=== PATIENT | male | born 1980 | race American Indian/Alaskan Native ===

== ENCOUNTER 2021-02-06 18:37 | Inpatient (IN) | payer SELFPAY ==
--- NOTE | 2021-02-06 19:22 | XRay Report ---
XR ankle 3+V RT INDICATION: DEFORMITY. COMPARISON: No relevant prior imaging study available. FINDINGS: There is a mildly comminuted oblique spiral-type fracture through the distal tibial diaphysis extendi ng into the metadiaphysis. There is mild displacement and angulation. There is mildly comminuted predominantly oblique distal fibular fracture with significant fracture fr agment overlap. No dislocation is seen. IMPRESSION: 1. Comminuted, displaced distal tibial and fibular fractures. Signer Name: Kiko Ortega MD Signed: 02/06/2021 7:18 PM Workstation Name: [id number]
[2021-02-06] MEDS ORDERED: HYDROmorphone 1 MG/1 ML INJ IV PRN (19:42)
--- NOTE | 2021-02-06 19:42 | Emergency Department Report ---
HPI - General Chief Complaint: Extremity Injury, Lower Time Seen by Provider: 02/06/21 19:07 - HPI HPI: Room 2 The patient is a 40-year-old male present with a chief complaint of right ankle pain after fall. The patient states he tripped over his dog just prior to arrival injuring his right lower extremity/ankle. Patient denies loss of consciousness. Patient was administered fentanyl 100 mcg and morphine 6 mg IV by EMS prior to arrival. Patient states his pain is now decreased to 4/10 ED Past Medical Hx - Past Medical History Previous Medical History?: No - Surgical History Past Surgical History?: No Additional Surgical History: Right bicep reconstruction, left elbow surgery, right ankle surgery (2000) - Family History Family history: no significant - Social History Smoking Status: Current Some Day Smoker Substance Use Type: Alcohol, Marijuana ED Review of Systems ROS: Stated complaint: R ANKLE DEFORMITY Other details as noted in HPI Constitutional: no symptoms reported Eyes: denies: eye pain ENT: denies: throat pain Respiratory: no symptoms reported Cardiovascular: denies: chest pain Endocrine: no symptoms reported Gastrointestinal: denies: abdominal pain Musculoskeletal: arthralgia Neurological: denies: headache Physical Exam - Physical Exam Physical Exam: GENERAL: The patient is well-developed well-nourished male lying on stretcher appearing to be in mild discomfort. [] HEENT: Normocephalic. Atraumatic. Extraocular motions are intact. Patient has moist mucous membranes. NECK: Supple. Trachea midline CHEST/LUNGS: There is no respiratory distress noted. HEART/CARDIOVASCULAR: Regular. There is no tachycardia. 2+ right DP SKIN: There is no rash. There are no lacerations seen about the right ankle NEURO: The patient is awake, alert, and oriented. The patient is cooperative. The patient has no focal neurologic deficits. The patient has normal speech. GCS 15. Patient able to move toes on right foot MUSCULOSKELETAL: There is deformity of the right ankle ED Course - Consultations Consultation #1: 02/06/21 19:37 Case discussed with orthopedic surgeon Dr. Johnson- will review studies and call back 02/06/21 19:56 Will take to the OR tomorrow. Have hospitalist admit ED Medical Decision Making - Radiology Data Radiology results: report reviewed (Right ankle x-ray), image reviewed (Right ankle x-ray) interpreted by me: Right ankle [id number] spiral distal tib-fib fracture [facility] [address] [place] [address] XR ay Report Signed Patient: ALENA MENDIOLA MR#: [id number] : 1980 Acct:[id number] Age/Sex: 40 / M ADM Date: 02/06/21 Loc: ED Attending Dr: Ordering Physician: SUMIT STAHL MD Date of Service: 02/06/21 Procedure(s): XR ankle 3+V RT Accession Number(s): [id number] cc: SUMIT STAHL MD Fluoro Time In Minutes: XR ankle 3+V RT INDICATION: DEFORMITY. COMPARISON: No relevant prior imaging study available. FINDINGS: There is a mildly comminuted oblique spiral- type fracture through the distal tibial diaphysis extending into the metadiaphysis. There is mild displacement and angulation. There is mildly comminuted predominantly oblique distal fibular fracture with significant fracture fragment overlap. No dislocation is seen. IMPRESSION: 1. Comminuted, displaced distal tibial and fibular fractures. Signer Name: Kiko Ortega MD Signed: 02/06/2021 7:18 PM Workstation Name: [id number] Transcribed By: SW Dictated By: Kiko Ortega MD Electronically Authenticated By: Kiko Ortega MD Signed Date/Time: 02/06/211917 DD/ 16 TD/TT: Print Cancel - Differential Diagnosis Ankle fracture, ankle dislocation Critical care attestation.: If time is entered above; I have spent that time in minutes in the direct care of this critically ill patient, excluding procedure time. ED Disposition Clinical Impression: Closed fracture of distal end of right fibula and tibia Disposition: ADMITTED INPATIENT Is pt being admited?: Yes Does the pt Need Aspirin: No Condition: Fair Time of Disposition: 19:57 (Hospitalist called (Dr. Turner-we will bridge under Dr. Cook))
[2021-02-06] MEDS ORDERED: ONDANSETRON 4 MG/2 ML INJ IV PRN (20:48)
[2021-02-06] MEDS ORDERED: HYDROmorphone 1 MG/1 ML INJ IV ONE (20:48)
[2021-02-06] MEDS ORDERED: METOCLOPRAMIDE 10 MG/2 ML INJ IV PRN (20:48)
[2021-02-06] MEDS ORDERED: ACETAMINOPHEN 325 MG TAB PO PRN (20:48)
[2021-02-06] MEDS ORDERED: NICOTINE 21 MG/24 HR PATCH TD ONE (20:51)
[2021-02-06] MEDS: SODIUM CHLORIDE 0.9% 1000 ML 1,000 ML IV SCH (23:08)
[2021-02-07] MEDS ORDERED: MORPHINE 2 MG/1 ML INJ IV STA (02:02)
[2021-02-07] MEDS: HYDROmorphone 1 MG/1 ML INJ IV PRN ×6 (05:18→21:33)
[2021-02-07] MEDS: hydrALAZINE 20 MG/1 ML INJ IV PRN ×2 (05:22→21:36)
--- NOTE | 2021-02-07 06:13 | History and Physical Report ---
History of Present Illness Date of examination: 02/06/21 Date of admission: 02/06/21 20:48 Chief complaint: Severe right lower extremity pain near the ankle for 2 hours after a fall History of present illness: 30-year-old -[place] male with no significant past medical history except for smoking tripped over his dog prior to his arrival and sustained a right lower extremity injury just above the ankle. Pain is about 10 on a scale of 1-10. Right lower extremity swollen and unable to walk. X-rays in the ER showed right lower tibia fibular fracture 6 inches above ankle. Closed fracture with displacement. Comminuted. Patient being admitted for orthopedic surgery on right lower extremity. Discussed the patient with Patient was administered fentanyl 100 mcg and morphine 6 mg IV by EMS prior to arrival. Patient states his pain is now decreased to 4/10 - Past Medical History Previous Medical History?: No - Surgical History Past Surgical History?: No Additional Surgical History: Right bicep reconstruction, left elbow surgery, right ankle surgery (2000) - Family History Family history: no significant - Social History Smoking Status: Current Some Day Smoker Substance Use Type: Alcohol, Marijuana Review of Systems ROS: Stated complaint: R ANKLE DEFORMITY Other details as noted in HPI Constitutional: no symptoms reported Eyes: denies: eye pain ENT: denies: throat pain Respiratory: no symptoms reported Cardiovascular: denies: chest pain Endocrine: no symptoms reported Gastrointestinal: denies: abdominal pain Musculoskeletal: arthralgia Neurological: denies: headache Medications and Allergies Allergies Allergy/AdvReac Type Severity Reaction Status Date / Time No Known Allergies Allergy Verified 02/06/21 18:47 Active Meds: Active Medications Acetaminophen (Acetaminophen 325 Mg Tab) 650 mg PO Q4H PRN PRN Reason: Pain MILD(1-3)/Fever >100.5/DELGADO Heparin Sodium (Porcine) (Heparin 5,000 Unit/1 Ml Vial) 5,000 unit SUB-Q Q12HR MCKENNA Hydralazine HCl (Hydralazine 20 Mg/1 Ml Inj) 10 mg IV Q6HR PRN PRN Reason: Hypertension Last Admin: 02/07/21 05:22 Dose: 10 mg Documented by: Hydromorphone HCl (Hydromorphone 1 Mg/1 Ml Inj) 1 mg IV Q3H PRN PRN Reason: Pain , Severe (7-10) Last Admin: 02/07/21 05:18 Dose: 1 mg Documented by: Sodium Chloride (Nacl 0.9% 1000 Ml) 1,000 mls @ 75 mls/hr IV DIRECT [facility] Last Admin: 02/06/21 23:08 Dose: 75 mls/hr Documented by: Metoclopramide HCl (Metoclopramide 10 Mg/2 Ml Inj) 10 mg IV Q6H PRN PRN Reason: Nausea And Vomiting Ondansetron HCl (Ondansetron 4 Mg/2 Ml Inj) 4 mg IV Q3H PRN PRN Reason: Nausea And Vomiting Oxycodone/Acetaminophen (Oxycodone /Acetaminophen 5-325mg Tab) 1 tab PO Q6H PRN PRN Reason: Pain, Moderate (4-6) Sodium Chloride (Sodium Chloride 0.9% 10 Ml Flush Syringe) 10 ml IV BID [facility] Last Admin: 02/06/21 23:16 Dose: 10 ml Documented by: Sodium Chloride (Sodium Chloride 0.9% 10 Ml Flush Syringe) 10 ml IV PRN PRN PRN Reason: LINE FLUSH Exam - Constitutional Vitals: Temp Pulse Resp BP Pulse Ox 98.1 F 61 18 160/135 98 02/07/21 04:17 02/07/21 05:22 02/07/21 04:17 02/07/21 05:22 02/07/21 04:17 General appearance: Present: mild distress, well-nourished - EENT Eyes: Present: PERRL ENT: hearing intact, clear oral mucosa - Neck Neck: Present: supple, normal ROM - Respiratory Respiratory effort: normal Respiratory: bilateral: CTA - Cardiovascular Heart rate: 70 Rhythm: regular Heart Sounds: Present: S1 & S2. Absent: rub, click - Extremities Extremities: no ischemia, pulses symmetrical, No edema, abnormal (Right lower extremity swollen just above the ankle and very tender) Extremity abnormal: tenderness, other (Right lower extremity swollen just over the ankle) Peripheral Pulses: within normal limits - Abdominal General gastrointestinal: Present: soft, non-tender, non-distended, normal bowel sounds Male genitourinary: Present: normal - Integumentary Integumentary: Present: clear, warm, dry - Musculoskeletal Musculoskeletal: gait normal, strength equal bilaterally - Psychiatric Psychiatric: appropriate mood/affect, intact judgment & insight - Neurologic Neurologic: CNII-XII intact, moves all extremities Results - Imaging and Cardiology Imaging and Cardiology: Right ankle x-ray comminuted displaced distal tibial and fibular fractures Description comminuted oblique spiral type fracture through the distal tibial diaphysis extending into the meta diaphysis. there is mild displacement and angulation. There is a mildly comminuted predominantly oblique distal fibular fracture with significant fracture fragment overlap Witt/IV: Voiding Method Urinal Assessment and Plan Advance Directives: Yes (Full code) VTE prophylaxis?: Chemical Plan of care discussed with patient/family: Yes - Patient Problems (1) Closed fracture of distal end of right fibula and tibia Current Visit: Yes Status: Acute Qualifiers: Encounter type: initial encounter Qualified Code(s): S82.831A - Other fracture of upper and lower end of right fibula, initial encounter for closed fracture; S82.301A - Unspecified fracture of lower end of right tibia, initial encounter for closed fracture Plan to address problem: Patient being taken to surgery tomorrow morning for plate insertion on the tibia Discussed with Dr. Johnson N.p.o. from midnight Pain management (2) Nicotine dependence Current Visit: Yes Status: Chronic Qualifiers: Nicotine product type: cigarettes Plan to address problem: Patient has counseled about smoking cessation and initiated on NicoDerm patch (3) Encounter for smoking cessation counseling Current Visit: Yes Status: Acute Plan to address problem: Patient counseled about smoking cessation and alternatives like Chantix given--time spent +10 minutes (4) DVT prophylaxis Current Visit: Yes Status: Acute Plan to address problem: SCDs for now (5) Discharge planning issues Current Visit: Yes Status: Acute Plan to address problem: As per Dr. Johnson patient can be discharged tomorrow after surgery and to use crutches for 2 weeks Follow-up with Dr. Savage in 1 week
[2021-02-07 07:21] LABS: BUN/Creatinine Ratio 10; Blood Urea Nitrogen 11 mg/dL (9-20); Calcium 8.5 mg/dL (8.4-10.2)
[2021-02-07 07:22] LABS: Alanine Aminotransferase 17 units/L (7-56); Albumin 3.8 g/dL (3.9-5); Hemolysis Index 19
[2021-02-07 09:58] LABS: BUN/Creatinine Ratio 9; Blood Urea Nitrogen 10 mg/dL (9-20); Calcium 8.8 mg/dL (8.4-10.2); Hemolysis Index 10
[2021-02-07 10:00] LABS: Basophils % (Auto) 0.4 % (0.0-1.8); Eosinophils # (Auto) 0.1 K/mm3 (0.0-0.4); Eosinophils % (Auto) 1.5 % (0.0-4.3); Hematocrit 45.8 % (35.5-45.6); Hemoglobin 15.2 gm/dl (11.8-15.2); Lymphocytes # (Auto) 3.8 K/mm3 (1.2-5.4); Mean Corpuscular HGB Conc 33 % (32-34); Mean Corpuscular Volume 94 fl (84-94); Monocytes # (Auto) 0.8 K/mm3 (0.0-0.8); Monocytes % (Auto) 7.9 % (0.0-7.3); Platelet Count 196 K/mm3 (140-440); Red Blood Count 4.89 M/mm3 (3.65-5.03); Red Cell Distribution Width 13.9 % (13.2-15.2)
--- NOTE | 2021-02-07 12:29 | Anesthesia Consultation ---
Anesthesia Consult and Med Hx Date of service: 02/07/21 - Airway Anesthetic Teeth Evaluation: Good, Caps (#8 has porcelain cap) ROM Head & Neck: Adequate Mental/Hyoid Distance: Adequate Mallampati Class: Class II Intubation Access Assessment: Probably Good - Pre-Operative Health Status ASA Pre-Surgery Classification: ASA2 Proposed Anesthetic Plan: General - Pulmonary Hx Smoking: Yes (1/2 p/day x 12 years, Marijuana use) Hx Asthma: No COPD: No Hx Pneumonia: No - Endocrine Hx End Stage Renal Disease: No - Other Systems Hx Substance Use: Yes (Marijuana 5-6/day. Last 02/06/21)
--- NOTE | 2021-02-07 12:30 | Anesthesia Day of Surgery ---
Anesthesia Day of Surgery - Day of Surgery Patient Examined: Yes Patient H&P Reviewed: Yes Patient is NPO: Yes
[2021-02-07] MEDS: HEPARIN 5,000 UNIT/1 ML VIAL SUB-Q SCH (21:39)
[2021-02-07] MEDS: oxyCODONE /ACETAMINOPHEN 5-325MG TAB PO PRN (22:56)
[2021-02-08] MEDS: HYDROmorphone 1 MG/1 ML INJ IV PRN ×6 (02:26→22:07)
[2021-02-08] MEDS: SODIUM CHLORIDE 0.9% 1000 ML 1,000 ML IV SCH ×2 (02:28→21:35)
[2021-02-08] MEDS: oxyCODONE /ACETAMINOPHEN 5-325MG TAB PO PRN ×2 (05:03→11:24)
--- NOTE | 2021-02-08 07:50 | Progress Note ---
Assessment and Plan - Patient Problems (1) Closed fracture of distal end of right fibula and tibia Status: Acute Qualifiers: Encounter type: initial encounter Qualified Code(s): S82.831A - Other fracture of upper and lower end of right fibula, initial encounter for closed fracture; S82.301A - Unspecified fracture of lower end of right tibia, initial encounter for closed fracture Plan to address problem: Patient being taken to surgery tomorrow morning for plate insertion on the tibia Discussed with Dr. Johnson N.p.o. from midnight Pain management (2) Nicotine dependence Status: Chronic Qualifiers: Nicotine product type: cigarettes Plan to address problem: Patient has counseled about smoking cessation and initiated on NicoDerm patch (3) Encounter for smoking cessation counseling Status: Acute Plan to address problem: Patient counseled about smoking cessation and alternatives like Chantix given--time spent +10 minutes (4) DVT prophylaxis Status: Acute Plan to address problem: SCDs for now (5) Discharge planning issues Status: Acute Plan to address problem: As per Dr. Johnson patient can be discharged tomorrow after surgery and to use crutches for 2 weeks Follow-up with Dr. Savage in 1 week Subjective Date of service: 02/07/21 Principal diagnosis: Right tibia fibular fracture Interval history: 30-year-old -[place] male with no significant past medical history except for smoking tripped over his dog prior to his arrival and sustained a right lower extremity injury just above the ankle. Pain is about 10 on a scale of 1-10. Right lower extremity swollen and unable to walk. X-rays in the ER showed right lower tibia fibular fracture 6 inches above ankle. Closed fracture with displacement. Comminuted. Patient being admitted for orthopedic surgery on right lower extremity. Discussed the patient with Patient was administered fentanyl 100 mcg and morphine 6 mg IV by EMS prior to arrival. Patient states his pain is now decreased to 4/10 02/07/2021 Patient for open reduction internal fixation today or tomorrow Pain well controlled Objective - Constitutional Vitals: Vital Signs - 12hr 02/07/21 02/07/21 02/07/21 21:00 21:20 21:22 Temperature 98.5 F Pulse Rate 73 69 Respiratory 16 Rate Blood Pressure Blood Pressure 181/115 193/111 [Left] O2 Sat by Pulse 99 99 Oximetry 02/08/21 02/08/21 02/08/21 00:34 02:58 05:00 Temperature 98.6 F Pulse Rate 63 63 Respiratory 16 Rate Blood Pressure Blood Pressure 185/103 [Left] O2 Sat by Pulse 99 99 Oximetry 02/08/21 02/08/21 05:23 07:34 Temperature 99.3 F 98.9 F Pulse Rate 57 L 57 L Respiratory 16 20 Rate Blood Pressure 176/111 Blood Pressure 178/93 [Left] O2 Sat by Pulse 98 100 Oximetry General appearance: Present: no acute distress, well-nourished - EENT Eyes: PERRL, EOM intact ENT: hearing intact, clear oral mucosa Ears: bilateral: normal - Neck Neck: supple, normal ROM - Respiratory Respiratory effort: normal Respiratory: bilateral: CTA - Breasts Breasts: normal - Cardiovascular Heart rate: 78 Rhythm: regular Heart Sounds: Present: S1 & S2. Absent: gallop, rub Extremities: pulses intact, No edema, normal color, Full ROM - Gastrointestinal General gastrointestinal: Present: soft, non-tender, non-distended, normal bowel sounds - Genitourinary Male genitourinary: normal - Integumentary Integumentary: clear, warm, dry - Musculoskeletal Musculoskeletal: 1, strength equal bilaterally - Neurologic Neurologic: moves all extremities - Psychiatric Psychiatric: memory intact, appropriate mood/affect, intact judgment & insight - Labs CBC & Chem 7: 02/07/21 09:10 02/07/21 09:10 Labs: Abnormal lab results 02/07/21 Range/Units 09:10 Hct 45.8 H (35.5-45.6) % Lymph % (Auto) 40.0 H (13.4-35.0) % [place] % (Auto) 7.9 H (0.0-7.3) %
[2021-02-08] MEDS: hydrALAZINE 20 MG/1 ML INJ IV PRN ×2 (09:45→18:27)
[2021-02-08] MEDS ORDERED: NEOMY 40 MG/POLYMYXIN B 200,000 UNITS/ML (GU) AMPULE IR ONE ×2 (13:38→15:04)
[2021-02-08] MEDS: HEPARIN 5,000 UNIT/1 ML VIAL SUB-Q SCH ×2 (13:44→21:32)
--- NOTE | 2021-02-08 13:48 | Anesthesia Day of Surgery ---
Anesthesia Day of Surgery - Day of Surgery Patient Examined: Yes Patient H&P Reviewed: Yes Patient is NPO: Yes
[2021-02-08] MEDS ORDERED: LIDOCAINE MPF (2%) 20 MG/1 ML VIAL 5 ML ONE (13:57)
[2021-02-08] MEDS ORDERED: GLYCOPYRROLATE 0.4 MG/2 ML INJ ONE (13:57)
[2021-02-08] MEDS ORDERED: SUCCINYLCHOLINE CHLORIDE 200 MG/10 ML INJ MDV ONE (13:57)
[2021-02-08] MEDS ORDERED: fentaNYL 100 MCG/2 ML INJ ONE (13:57)
[2021-02-08] MEDS ORDERED: dexAMETHasone 20 MG/5 ML VIAL ONE (13:57)
[2021-02-08] MEDS ORDERED: ONDANSETRON 4 MG/2 ML INJ ONE (13:57)
[2021-02-08] MEDS ORDERED: PHENYLEPHRINE/NS 1,000 MCG/10 ML SYRINGE (OR USE) IV ONE (13:57)
[2021-02-08] MEDS ORDERED: propofoL 200 MG/20 ML VIAL IV ONE (13:58)
[2021-02-08] MEDS ORDERED: ePHEDrine SULFATE 50 MG/1 ML INJ ONE (13:58)
[2021-02-08] MEDS ORDERED: MIDAZOLAM 2 MG/2 ML INJ ONE (14:28)
[2021-02-08] MEDS ORDERED: SODIUM CHLORIDE 0.9% IRR 1,500 ML BOTTLE IR ONE (14:51)
[2021-02-08] MEDS ORDERED: HYDROmorphone 1 MG/1 ML INJ ONE ×3 (14:59→17:56)
[2021-02-08] MEDS ORDERED: oxyCODONE /ACETAMINOPHEN 5-325MG TAB PO PRN (17:56)
[2021-02-08] MEDS ORDERED: ONDANSETRON 4 MG/2 ML INJ IV PRN (18:08)
--- NOTE | 2021-02-08 18:22 | Operative Report ---
Operative Report Operative Report: Operative REPORT Preop diagnosis : Distal one fourth tibial and fibular fractures at the metadiaphysis, right LE Postop diagnosis : Distal tibia-fibular factures with comminution primarily fibular, RIGHT LE Surgery performed : IM nail stabilization distal tibia fracture, RIGHT LE Anesthesia: General with endotracheal tube Surgeon : Pedro Johnson MD Details of operative technique: The patient was prepared from the floor in the holding area and then was taken to the operating room where he underwent satisfactory general anesthesia utilizing an Endo tracheal tube. He was placed on the operating table in the supine position. Right leg was then prepped and draped in the usual sterile fashion utilizing DuraPrep solution as per protocol. 2 g Ancef was administered at the start of the case. The extremity was then elevated exsanguinated by gravity and the tourniquet was inflated to 300 mmHg. A timeout was then called by the circulating nurse and once again the correct site was identified. A 6 cm longitudinal incision was made on the lateral aspect of the patella tendon and tibial tubercle. Dissection was carried down through the fibrofatty layer. Starting point for the opening of the canal was then located just in the retropatellar tendon area in the proximal tibia. An awl was placed to create a good starting point and a guidewire was placed down the shaft of the proximal fragment which went well below the diaphysis of the mid shaft into the lower one quarter where there was a large third fragment or butterfly fragment into the distal fragment at the level of the tibial plafond. This was over reamed up to 12 mm so that an 11 mm tibial nail (Diana) could be advanced. This was done with some caution as the fragments were difficult to maintain normal alignment with the fracture being primarily in the metadiaphyseal portion of the very distal aspect of the tibia. The [place] 11 mm IM nail (375 mm length was then inserted over the guidewire and placed all the way down to within 1 cm of the plafond. Attempt was made to lock the distal fragment with the 2 locking screws but this was unable to be accomplished because of the loss of the reduction every time the drill was placed to begin for screw placement ; the overall reduction and alignment appeared to deteriorate therefore distal locking was abandoned . The Nail was not locked proximally as well, as there was excellent cortical fit in the diaphysis of the tibial shaft. Wounds were then irrigated copiously with normal saline. Hemostasis was secured. Deep fascia was repaired with 0 Vicryl suture with the same suture being utilized for the subcutaneous layer. Small stab incision distally for the locking mechanism was also repaired with 0 Vicryl. The skin was reapproximated for both the proximal and small distal incisions with naif. Sterile compressive dressings were then applied with Xeroform and ABD pads followed by a Raza wrap and an AO splint application which was secured with an Roe wrap. The patient was then awakened and taken to recovery room in excellent condition. Estimated blood loss: Less than 50 cc Drains: None Complications: None Tourniquet time 110 minutes
--- NOTE | 2021-02-08 18:31 | Post Anesthesia Evaluation ---
- Post Anesthesia Evaluation Patient Participated: Yes Airway Patent: Yes Stable Respiratory Function: Yes Nausea/Vomiting: No Temp > 96.8F: Yes Pain Manageable: Yes Adequeate Hydration: Yes Anesthesia Complications: No Block Receding Appropriately: Not Applicable Patient on Ventilator: No Other Comments: pt a + o x 3. no distress noted. resting comfortable in bed.
--- NOTE | 2021-02-08 20:22 | XRay Report ---
XR TIBIA FIBULA 2V RT INDICATION / CLINICAL INFORMATION: RT TIB/FIB NAILING. COMPARISON: None available. FINDINGS: Multiple images were obtained during placement of an intramedullary leanne across the comminuted fractur e of the distal tibial shaft. No complication of the procedure is seen. Fluoroscopy time: 6.1 minutes. Fluoroscopic images: 67. Signer Name: Horace Todd MD Signed: 02/08/2021 8:17 PM Workstation Name: [id number]
[2021-02-09] MEDS: hydrALAZINE 20 MG/1 ML INJ IV PRN ×2 (05:37→10:11)
[2021-02-09] MEDS: HYDROmorphone 1 MG/1 ML INJ IV PRN (05:37)
[2021-02-09 07:59] VITALS: BP 161/81
[2021-02-09] MEDS: HEPARIN 5,000 UNIT/1 ML VIAL SUB-Q SCH (10:11)
--- NOTE | 2021-02-09 13:15 | Progress Note ---
Subjective Date of service: 02/09/21 Principal diagnosis: TIB/fib FRACTURE RIGHT LE Interval history: S) wake and alert lying in hospital bed; had physical therapy cleared him already for toe-touch weightbearing with crutches/walker O) the splint is intact. Toes are neurovascularly intact. There is no excessive drainage whatsoever at the incision site and the dressings are dry. Apparently has already ambulated well with physical therapy (toe-touch on the right lower extremity. Pain is being managed with p.o. analgesics. A) complex distal tibia fracture, right lower extremity; POD # 1 : S/P IM nail stabilization without locking RIGHT Tibia P) satisfactory postop course; S/P IM nail stabiliz. Rt TIBIA; is been cleared by physical therapy with toe-touch weightbearing only on the right lower extremity. 1. We will order home health physical therapy to begin [facility] with 2 visits per week for the next 3 weeks.; 2. dssg should be changed in 1 week and the naif to be removed on postop day #10 (Feb 19-), Steri-Strips applied;(HOME health nurse) 3. Percocet 5 mg p.o. as needed pain every 6 hours 4. Follow-up in orthopedic office February 24, 2021 Objective Vital signs: Vital Signs - 12hr 02/09/21 02/09/21 02/09/21 01:18 04:12 05:37 Temperature 97.2 F L 99.9 F H Pulse Rate 125 H 110 H Respiratory 20 20 Rate Blood Pressure 151/97 189/112 189/112 O2 Sat by Pulse 97 Oximetry 02/09/21 02/09/21 07:51 07:59 Temperature 98.8 F Pulse Rate 114 H Respiratory Rate Blood Pressure 161/81 O2 Sat by Pulse 96 Oximetry - Labs CBC & BMP: 02/07/21 09:10 02/07/21 09:10
--- NOTE | 2021-02-09 18:35 | Progress Note ---
Assessment and Plan - Patient Problems (1) Closed fracture of distal end of right fibula and tibia Status: Acute Qualifiers: Encounter type: initial encounter Qualified Code(s): S82.831A - Other fracture of upper and lower end of right fibula, initial encounter for closed fracture; S82.301A - Unspecified fracture of lower end of right tibia, initial encounter for closed fracture Plan to address problem: Patient had surgery today For possible discharge tomorrow (2) Nicotine dependence Status: Chronic Qualifiers: Nicotine product type: cigarettes Plan to address problem: Patient has counseled about smoking cessation and initiated on NicoDerm patch (3) Encounter for smoking cessation counseling Status: Acute Plan to address problem: Patient counseled about smoking cessation and alternatives like Chantix given--time spent +10 minutes (4) DVT prophylaxis Status: Acute Plan to address problem: SCDs for now (5) Discharge planning issues Status: Acute Plan to address problem: As per Dr. Johnson patient can be discharged tomorrow after surgery and to use crutches for 2 weeks Follow-up with Dr. Savage in 1 week Subjective Date of service: 02/08/21 Principal diagnosis: Right tibia fibular fracture Interval history: 30-year-old -Stateless male with no significant past medical history except for smoking tripped over his dog prior to his arrival and sustained a right lower extremity injury just above the ankle. Pain is about 10 on a scale of 1-10. Right lower extremity swollen and unable to walk. X-rays in the ER showed right lower tibia fibular fracture 6 inches above ankle. Closed fracture with displacement. Comminuted. Patient being admitted for orthopedic surgery on right lower extremity. Discussed the patient with Patient was administered fentanyl 100 mcg and morphine 6 mg IV by EMS prior to arrival. Patient states his pain is now decreased to 4/10 02/07/2021 Patient for open reduction internal fixation today or tomorrow Pain well controlled 02/08/2021 S/p internal fixation right tib-fib fracture Postop patient doing well Patient to be discharged tomorrow Objective - Constitutional Vitals: Vital Signs - 12hr 02/09/21 02/09/21 02/09/21 07:51 07:59 15:00 Temperature 98.8 F Pulse Rate 114 H 85 Blood Pressure 161/81 O2 Sat by Pulse 96 98 Oximetry General appearance: Present: no acute distress, well-nourished - EENT Eyes: PERRL, EOM intact ENT: hearing intact, clear oral mucosa Ears: bilateral: normal - Neck Neck: supple, normal ROM - Respiratory Respiratory effort: normal Respiratory: bilateral: CTA - Breasts Breasts: normal - Cardiovascular Heart rate: 78 Rhythm: regular Heart Sounds: Present: S1 & S2. Absent: gallop, rub Extremities: pulses intact, No edema, normal color, Full ROM, abnormal (Right lower extremity in dressing below the knee) - Gastrointestinal General gastrointestinal: Present: soft, non-tender, non-distended, normal bowel sounds - Genitourinary Male genitourinary: normal - Integumentary Integumentary: clear, warm, dry - Musculoskeletal Musculoskeletal: 1, strength equal bilaterally - Neurologic Neurologic: moves all extremities - Psychiatric Psychiatric: memory intact, appropriate mood/affect, intact judgment & insight - Labs CBC & Chem 7: 02/07/21 09:10 02/07/21 09:10
--- NOTE | 2021-02-09 18:43 | Discharge Summary ---
Providers - Providers Date of Admission: 02/08/21 13:01 Date of discharge: 02/09/21 Attending physician: LESLIE RODRIGUEZ 02/06/21 20:09 Consult to Physician [CONS] Urgent Comment: Consulting Provider: ERIKA MENDOZA Physician Instructions: Reason For Exam: Distal comminuted tib-fib fracture 02/08/21 17:57 Physical Therapy Evaluation and Treat [CONS] Routine Comment: right lower extremity toe touch Reason For Exam: up with patient, teach crutch walking Weight bearing status?: Toe touch Primary care physician: [employer] Hospitalization Condition: Fair Hospital course: Subjective Date of service: 02/09/21 Principal diagnosis: Right tibia fibular fracture Interval history: 30-year-old -[place] male with no significant past medical history except for smoking tripped over his dog prior to his arrival and sustained a right lower extremity injury just above the ankle. Pain is about 10 on a scale of 1-10. Right lower extremity swollen and unable to walk. X-rays in the ER showed right lower tibia fibular fracture 6 inches above ankle. Closed fracture with displacement. Comminuted. Patient being admitted for orthopedic surgery on right lower extremity. Discussed the patient with Patient was administered fentanyl 100 mcg and morphine 6 mg IV by EMS prior to arrival. Patient states his pain is now decreased to 4/10 02/07/2021 Patient for open reduction internal fixation today or tomorrow Pain well controlled 02/08/2021 S/p internal fixation right tib-fib fracture Postop patient doing well Patient to be discharged tomorrow 02/09/2021 Patient be discharged now Discharge instructions given Patient to follow-up with orthopedic surgeon Dr. MENDOZA - Patient Problems (1) Closed fracture of distal end of right fibula and tibia Status: Acute Qualifiers: Encounter type: initial encounter Qualified Code(s): S82.831A - Other fracture of upper and lower end of right fibula, initial encounter for closed fracture; S82.301A - Unspecified fracture of lower end of right tibia, initial encounter for closed fracture Plan to address problem: Patient had surgery today For possible discharge tomorrow (2) Nicotine dependence Status: Chronic Qualifiers: Nicotine product type: cigarettes Plan to address problem: Patient has counseled about smoking cessation and initiated on NicoDerm patch (3) Encounter for smoking cessation counseling Status: Acute Plan to address problem: Patient counseled about smoking cessation and alternatives like Chantix given--time spent +10 minutes (4) DVT prophylaxis Status: Acute Plan to address problem: SCDs for now (5) Discharge planning issues Status: Acute Plan to address problem: As per Dr. Mendoza patient can be discharged tomorrow after surgery and to use crutches for 2 weeks Follow-up with Dr. Savage in 1 week Disposition: 01 HOME / SELF CARE / HOMELESS Final Discharge Diagnosis (Prints w/discharge instructions): Right tibia fracture. Right fibular fracture. S/p internal fixation right tibia. Nicotine dependence Time spent for discharge: 35 minutes - Discharge Diagnoses (1) Closed fracture of distal end of right fibula and tibia Status: Acute Qualifiers: Encounter type: initial encounter Qualified Code(s): S82.831A - Other f racture of upper and lower end of right fibula, initial encounter for closed fracture; S82.301A - Unspecified fracture of lower end of right tibia, initial encounter for closed fracture (2) Nicotine dependence Status: Chronic Qualifiers: Nicotine product type: cigarettes (3) Encounter for smoking cessation counseling Status: Acute (4) DVT prophylaxis Status: Acute (5) Discharge planning issues Status: Acute Core Measure Documentation - Palliative Care Palliative Care/ Comfort Measures: Not Applicable - Core Measures Any of the following diagnoses?: none Exam - Constitutional Vitals: Temp Pulse Resp BP Pulse Ox 98.8 F 85 20 161/81 98 02/09/21 07:59 02/09/21 15:00 02/09/21 04:12 02/09/21 07:51 02/09/21 15:00 General appearance: Present: no acute distress, well-nourished - EENT Eyes: Present: PERRL ENT: hearing intact, clear oral mucosa - Neck Neck: Present: supple, normal ROM - Respiratory Respiratory effort: normal Respiratory: bilateral: CTA - Cardiovascular Heart rate: 78 Rhythm: regular Heart Sounds: Present: S1 & S2. Absent: rub, click - Extremities Extremities: no ischemia, pulses intact, pulses symmetrical, No edema Peripheral Pulses: within normal limits - Abdominal General gastrointestinal: Present: soft, non-tender, non-distended, normal bowel sounds Male genitourinary: Present: normal - Rectal Rectal Exam: deferred - Integumentary Integumentary: Present: clear, warm, dry - Musculoskeletal Musculoskeletal: gait normal, strength equal bilaterally - Psychiatric Psychiatric: appropriate mood/affect, intact judgment & insight - Neurologic Neurologic: CNII-XII intact, moves all extremities - Allied Health Allied health notes reviewed: nursing, case management Plan Weight Bearing Status: Weight Bear as Tolerated Diet: regular Follow up with: PRIMARY CARE, [Primary Care Provider] - 7 Days ERIKA MENDOZA MD [Staff Physician] - 7 Days Forms: Discharge Signature Page Prescriptions: oxyCODONE /ACETAMINOPHEN [Percocet 5/325] 1 tab PO Q6HR PRN #20 tablet PRN Reason: Pain
== END 2021-02-09 15:10 | disposition home health service (06) | DRG 494 ==
LOC: ED 18:37 → 4A 20:48 → OBSVTOIN 02-08 13:01
PROVIDERS: ADMIT Internal Medicine; ATTEND Internal Medicine
PROC: 0QH Lower Bones, Insertion (ICD-10-PCS; principal; 2021-02-08)
PROC: 0QHG36Z Insertion of Intramedullary Internal Fixation Device into Right Tibia, Percutaneous Approach (ICD-10-PCS; 2021-02-08)
DX: S82.831A Other fracture of upper and lower end of right fibula, initial encounter for closed fracture (principal); S82.309A Unspecified fracture of lower end of unspecified tibia, initial encounter for closed fracture; W18.39XA Other fall on same level, initial encounter; Y93.89 Activity, other specified; Y92.89 Other specified places as the place of occurrence of the external cause; Y99.8 Other external cause status; S82.301A Unspecified fracture of lower end of right tibia, initial encounter for closed fracture; Z20.822 Contact with and (suspected) exposure to COVID-19
CPT/HCPCS: 36415; 80048; 80053; 85025; 99285; G0378; J1815; J3490; J7120; Q0162; C1713; J0330; J0360; J0690; J1100; J1170; J1644; J2250; J2270; J2370; J2405; J2704; J3010; J7030

== ENCOUNTER 2021-02-13 19:55 | Emergency (ER) | payer SELFPAY ==
[2021-02-13] MEDS ORDERED: oxyCODONE /ACETAMINOPHEN 5-325MG TAB PO ONE (22:51)
[2021-02-13] MEDS ORDERED: SULFAMETHOXAZOLE/TRIMETHOPRIM 800/160MG DS TAB PO ONE (22:51)
[2021-02-13] MEDS ORDERED: ONDANSETRON 4 MG ODT TAB PO ONE (22:51)
[2021-02-13] MEDS ORDERED: IBUPROFEN 600 MG TAB PO ONE (22:51)
--- NOTE | 2021-02-14 01:32 | Emergency Department Report ---
ED Lower Extremity HPI - General Chief Complaint: Laceration/Recheck/Suture Stated Complaint: STAPLE REMOVAL Source: patient Mode of arrival: Ambulatory Limitations: No Limitations - History of Present Illness Initial Comments: Patient is a 40-year-old -[place] male with no past medical history except smoking cigarettes who presented to the ED with complaint of worsening right lower leg pain following a fall 1 week ago which resulted in distal tib- fib fracture and s/p internal fixation surgery by Dr. Mendoza 6 days ago. Patient states that the temporary cast that was placed following his procedure is causing more pain as it travels onto his skin and the stapled wound on his anterior right lower leg. Patient states that he also ran out of his pain medications and lost all the paperwork he got from the hospital and therefore was unable to follow-up with the orthopedic surgeon as was instructed because he did not know who the orthopedic surgeon was. Patient denies fever, chills, nausea, vomiting, dizziness, syncope, numbness and tingling or weakness of right leg, chest pain or shortness of breath, neck pain or headache. MD Complaint: leg injury (Right lower leg pain, status post distal comminuted tib-fib fracture status post internal fixation surgery), other (Worsening right leg pain) -: Sudden, week(s) (1) Injury: Leg: Right (Right lower leg pain following tib-fib fracture status post internal fixation surgery) Type of Injury: other (Tripped on a dog and fell down the stairs) Place: home Severity: severe Severity scale (0 -10): 7 Improves With: nothing Worsens With: weight bearing, movement, palpation Context: fall Associated Symptoms: snap/pop sensation, swelling, unable to bear weight. denies: numbness, tingling, able to partially bear weight, ambulatory Treatments Prior to Arrival: NSAIDS, splint - Related Data Home Medications Medication Instructions Recorded Confirmed Last Taken Multivit-Minerals/FA/Lycopene [One 1 tab PO QDAY 02/07/21 02/07/21 02/06/21 Daily [facility]'s [facility] Tablet] Previous Rx's Medication Instructions Recorded Last Taken Type oxyCODONE /ACETAMINOPHEN [Percocet 1 tab PO Q6HR PRN #20 tablet 02/09/21 Unknown Rx 5/325] HYDROcodone/APAP 5-325 [[place] 1 each PO Q6HR PRN #12 tablet 02/14/21 Unknown Rx 5/325] Ibuprofen [Motrin] 800 mg PO Q8HR PRN #30 tablet 02/14/21 Unknown Rx Allergies Allergy/AdvReac Type Severity Reaction Status Date / Time No Known Allergies Allergy Verified 02/06/21 18:47 ED Review of Systems ROS: Stated complaint: STAPLE REMOVAL Other details as noted in HPI Constitutional: denies: chills, fever Eyes: denies: eye pain, eye discharge, vision change ENT: denies: ear pain, throat pain Respiratory: denies: cough, shortness of breath, wheezing Cardiovascular: denies: chest pain, palpitations Endocrine: no symptoms reported Gastrointestinal: denies: abdominal pain, nausea, diarrhea Genitourinary: denies: urgency, dysuria Musculoskeletal: arthralgia (Right lower leg pain following tib-fib fracture and s/p internal fixation surgery). denies: back pain, joint swelling Skin: denies: rash, lesions Neurological: denies: headache, weakness, paresthesias Psychiatric: denies: anxiety, depression Hematological/Lymphatic: denies: easy bleeding, easy bruising ED Past Medical Hx - Past Medical History Previous Medical History?: No Hx Congestive Heart Failure: No Hx Diabetes: No Hx Asthma: No Hx COPD: No - Surgical History Past Surgical History?: Yes Additional Surgical History: Right bicep reconstruction, left elbow surgery, right ankle surgery (2000). RIGHT LEG 2020 - Social History Smoking Status: Current Every Day Smoker - Medications Home Medications: Home Medications Medication Instructions Recorded Confirmed Last Taken Type Multivit-Minerals/FA/Lycopene [One 1 tab PO QDAY 02/07/21 02/07/21 02/06/21 History Daily Men's [employer] Tablet] oxyCODONE /ACETAMINOPHEN [Percocet 1 tab PO Q6HR PRN #20 tablet 02/09/21 Unknown Rx 5/325] HYDROcodone/APAP 5-325 [[place]hel 1 each PO Q6HR PRN #12 tablet 02/14/21 Unknown Rx 5/325] Ibuprofen [Motrin] 800 mg PO Q8HR PRN #30 tablet 02/14/21 Unknown Rx ED Physical Exam - General Limitations: No Limitations General appearance: alert, in no apparent distress - Head Head exam: Present: atraumatic, normocephalic, normal inspection - Eye Eye exam: Present: normal appearance, PERRL, EOMI Pupils: Present: normal accommodation - ENT ENT exam: Present: normal exam, normal orophraynx, mucous membranes moist, TM's normal bilaterally, normal external ear exam - Neck Neck exam: Present: normal inspection, full ROM. Absent: tenderness - Respiratory Respiratory exam: Present: normal lung sounds bilaterally. Absent: respiratory distress, wheezes, rales, chest wall tenderness, accessory muscle use, decreased breath sounds, prolonged expiratory - Cardiovascular Cardiovascular Exam: Present: normal rhythm, tachycardia, normal heart sounds. Absent: systolic murmur, diastolic murmur, rubs, gallop - GI/Abdominal GI/Abdominal exam: Present: soft, normal bowel sounds. Absent: tenderness, guarding, rebound, hyperactive bowel sounds, hypoactive bowel sounds, organomegaly - Extremities Exam Extremities exam: Present: normal inspection, tenderness (Palpable severe right lower leg tenderness on splinted right leg following distal tib-fib fracture and s/p internal fixation surgery), normal capillary refill, calf tenderness. Absent: full ROM (Limited range of motion of right lower leg due to pain from recent injury), pedal edema, joint swelling - Back Exam Back exam: Present: normal inspection, full ROM. Absent: tenderness, CVA t enderness (R), CVA tenderness (L), muscle spasm, paraspinal tenderness, vertebral tenderness - Neurological Exam Neurological exam: Present: alert, oriented X3, CN II-XII intact, reflexes normal, other (Gait not tested due to patient's right leg pain ) - Psychiatric Psychiatric exam: Present: normal affect, normal mood, anxious - Skin Skin exam: Present: warm, dry, intact, normal color. Absent: rash ED Course Vital Signs 02/13/21 19:59 Temperature 97.8 F Pulse Rate 108 H Respiratory 18 Rate Blood Pressure 192/113 O2 Sat by Pulse 99 Oximetry ED Lower Extremity MDM - Medical Decision Making This is a 40-year-old -[place] male with no past medical history except smoking cigarettes who presented to the ED with complaint of worsening right lower leg pain following a fall 1 week ago which resulted in distal tib-fib fracture and s/p internal fixation surgery by Dr. Mendoza 6 days ago. Patient states that the temporary cast that was placed following his procedure is causing more pain as it travels onto his skin and the stapled wound on his anterior right lower leg. Patient states that he also ran out of his pain medications and lost all the paperwork he got from the hospital and therefore was unable to follow-up with the orthopedic surgeon as was instructed because he did not know who the orthopedic surgeon was. In the ED, patient is alert and oriented x3 and is not in any distress. Patient however is anxious and appears to be in pain. Patient was treated for pain in the ED and a new splint was applied to the right lower leg. On reevaluation, patient is neurovascularly intact on the right leg following the splint application. Patient was therefore discharged home with a fresh information regarding the orthopedic surgeon and his contacts. Patient was advised to contact Dr. Mendoza's office to schedule a follow-up appointment as previously arranged. Patient is advised return to the ED immediately if symptoms get worse. - Differential Diagnosis Tib-fib fracture; infected right leg stapled wound; right leg injury Critical care attestation.: If time is entered above; I have spent that time in minutes in the direct care of this critically ill patient, excluding procedure time. ED Disposition Clinical Impression: Closed fracture of distal end of right fibula and tibia Qualifiers: Encounter type: subsequent encounter Fracture healing: with delayed healing Qualified Code(s): S82.831G - Other fracture of upper and lower end of right fibula, subsequent encounter for closed fracture with delayed healing; S82.301G - Unspecified fracture of lower end of right tibia, subsequent encounter for closed fracture with delayed healing Disposition: 01 HOME / SELF CARE / HOMELESS Is pt being admited?: No Does the pt Need Aspirin: No Condition: Stable Instructions: Tibial Shaft Fracture Rehab-Sports[facility], Cast or Splint Care, Adult, [id number], Tibial Fracture, Adult, [id number], Tibial Plateau Fracture Rehab-Sports[facility] Additional Instructions: Take the pain medication as needed with food, drink plenty of fluids and follow- up with the orthopedic surgeon Dr. Mendoza as previously scheduled. Contact Dr. Jimenez's office first thing in the morning on Sunday February 14, 2021 to schedule your appointment with him. Return to the ED immediately if symptoms get worse. Prescriptions: Ibuprofen [Motrin] 800 mg PO Q8HR PRN #30 tablet PRN Reason: Pain , Severe (7-10) HYDROcodone/APAP 5-325 [Bethel 5/325] 1 each PO Q6HR PRN #12 tablet PRN Reason: Pain Referrals: ERIKA MENDOZA MD [Staff Physician] - 3-5 Days Time of Disposition: 01:38 Print Language: SURINAMESE
[2021-02-14] MEDS ORDERED: SULFAMETHOXAZOLE/TRIMETHOPRIM 800/160MG DS TAB ONE (01:52)
[2021-02-14] MEDS ORDERED: ONDANSETRON 4 MG ODT TAB ONE (01:52)
[2021-02-14] MEDS ORDERED: oxyCODONE /ACETAMINOPHEN 5-325MG TAB ONE (01:53)
[2021-02-14] MEDS ORDERED: IBUPROFEN 600 MG TAB PO ONE (01:54)
[2021-02-14 02:20] VITALS: BP 194/131
== END 2021-02-14 02:23 | disposition home or self-care (01) ==
LOC: ED 19:55
DX: S82.391D Other fracture of lower end of right tibia, subsequent encounter for closed fracture with routine healing (principal); S82.831D Other fracture of upper and lower end of right fibula, subsequent encounter for closed fracture with routine healing; F17.200 Nicotine dependence, unspecified, uncomplicated; Z79.899 Other long term (current) drug therapy; W10.8XXA Fall (on) (from) other stairs and steps, initial encounter; Y93.89 Activity, other specified; Y92.89 Other specified places as the place of occurrence of the external cause; Y99.8 Other external cause status
CPT/HCPCS: 99282; J3490; Q0162

== ENCOUNTER 2021-02-21 06:04 | Emergency (ER) | payer SELFPAY ==
[2021-02-21 06:29] VITALS: BP 143/97
[2021-02-21] MEDS ORDERED: oxyCODONE /ACETAMINOPHEN 5-325MG TAB PO ONE (08:02)
--- NOTE | 2021-02-21 08:20 | Emergency Department Report ---
ED Lower Extremity HPI - General Chief Complaint: Extremity Injury, Lower Stated Complaint: post op pain Time Seen by Provider: 02/21/21 07:50 Source: EMS Mode of arrival: Stretcher Limitations: No Limitations - History of Present Illness Initial Comments: 40-year-old male presents to the hospital complaining of worsening right leg pain s/p distal 1 for tib-fib fractures at the metaphysis with comminution. Patient status post surgical repair on December 09. Patient has yet to follow-up with orthopedic surgeon. Patient presents to the hospital complaining of worsening pain to right lower extremity since last night. Patient feels as though the leg splint is digging into his skin at the anterior upper and lateral area of the splint. Patient also feels like the leanne is shifting in his leg every time he lifts it up. He denies a fall since surgery. Pain is moderate in intensity, worse with palpation. Somewhat improved with [place]. Patient has ongoing right foot and leg edema since surgery. Patient states he has been attempting to elevate his leg. He was also seen here in the ED on December 15 and was prescribed additional pain medication. Patient states he has approximately 4 tablets of [place] remaining. During that visit it is documented that patient did not follow-up with orthopedic surgeon because he did not have the paperwork regarding follow-up. Now he states that his orthopedic surgeon is on vacation x1 week. No reports of fever or shortness of breath - Related Data Home Medications Medication Instructions Recorded Confirmed Last Taken Multivit-Minerals/FA/Lycopene [One 1 tab PO QDAY 02/07/21 02/07/21 02/06/21 Daily [employer] InCorta Tablet] Previous Rx's Medication Instructions Recorded Last Taken Type oxyCODONE /ACETAMINOPHEN [Percocet 1 tab PO Q6HR PRN #20 tablet 02/09/21 Unknown Rx 5/325] Ibuprofen [Motrin] 800 mg PO Q8HR PRN #30 tablet 02/14/21 Unknown Rx Sulfamethoxazole/Trimethoprim 1 each PO Q12H #20 tablet 02/14/21 Unknown Rx [Bactrim DS TAB] HYDROcodone/APAP 5-325 [[place] 1 each PO Q6HR PRN #12 tablet 02/21/21 Unknown Rx 5-325 mg TAB] Allergies Allergy/AdvReac Type Severity Reaction Status Date / Time No Known Allergies Allergy Verified 02/06/21 18:47 ED Review of Systems ROS: Stated complaint: post op pain Other details as noted in HPI Comment: All other systems reviewed and negative ED Past Medical Hx - Past Medical History Hx Congestive Heart Failure: No Hx Diabetes: No Hx Asthma: No Hx COPD: No - Surgical History Additional Surgical History: Right bicep reconstruction, left elbow surgery, right ankle surgery (2000). RIGHT LEG 2020 - Social History Smoking Status: Never Smoker Substance Use Type: None - Medications Home Medications: Home Medications Medication Instructions Recorded Confirmed Last Taken Type Multivit-Minerals/FA/Lycopene [One 1 tab PO QDAY 02/07/21 02/07/21 02/06/21 His tory Daily 911 View Tablet] oxyCODONE /ACETAMINOPHEN [Percocet 1 tab PO Q6HR PRN #20 tablet 02/09/21 Unknown Rx 5/325] Ibuprofen [Motrin] 800 mg PO Q8HR PRN #30 tablet 02/14/21 Unknown Rx Sulfamethoxazole/Trimethoprim 1 each PO Q12H #20 tablet 02/14/21 Unknown Rx [Bactrim DS TAB] HYDROcodone/APAP 5-325 [[place] 1 each PO Q6HR PRN #12 tablet 02/21/21 Unknown Rx 5-325 mg TAB] ED Physical Exam - General Limitations: No Limitations - Other Other exam information: General: No acute distress Head: Atraumatic Eyes: normal appearance ENT: Moist mucous membranes Neck: Normal appearance, no midline tenderness Chest: Clear to auscultation bilaterally CV: Regular rate and rhythm Abdomen: Soft, normal bowel sounds, nontender, nondistended, no rebound or guarding Back: Normal inspection Extremity: Right leg: Patient has a U-shaped and posterior splint in place which was removed to examine leg. diffuse leg edema, no erythema or warmth, tenderness at anterior lateral upper leg at area of splint, right foot edema, midline right knee naif Neuro: Alert O x 3, no facial asymmetry, speech clear, no gross motor sensory deficit Psych: Appropriate behavior Skin: No rash ED Course Vital Signs 02/21/21 06:28 Temperature 98.7 F Pulse Rate 76 Respiratory 18 Rate Blood Pressure 143/97 [Left] O2 Sat by Pulse 100 Oximetry - Consultations Consultation #1: 02/21/21 10:[address] Martines who states that alignment is adequate and patient can follow-up as an outpatient ED Lower Extremity MDM - Radiology Data Radiology results: report reviewed Right tibia and fibula INDICATION: Fracture repair with pain FINDINGS: There is intramedullary leanne within the tibia. The distal aspect of the right appears within the posterior aspect of the tibia with continued displacement of the tibial shaft approximately 1.1 cm. Proximal fibula fracture is also identified in the metadiaphyseal region on AP view comminuted fracture the distal tibia and fibula are noted. - Medical Decision Making 40-year-old male with ongoing right leg pain in the anterior leg at area splint edges. Suspect that the splint is rubbing against the leg causing irritation. No skin breakdown or infection noted. Patient also feels like something is moving around in his leg. X-ray revealed adequate placement of leanne after orthopedic review. Patient instructed to follow-up next week. A new splint was applied in the ED U-shaped and posterior with a wider size splint material and patient states splint feels better. Additional pain meds prescribed Critical Care Time: No Critical care attestation.: If time is entered above; I have spent that time in minutes in the direct care of this critically ill patient, excluding procedure time. ED Disposition Clinical Impression: S/P ORIF (open reduction internal fixation) fracture, Post-op pain Disposition: 01 HOME / SELF CARE / HOMELESS Is pt being admited?: No Does the pt Need Aspirin: No Condition: Stable Instructions: Cast or Splint Care, Adult Additional Instructions: Take the medication as prescribed. Follow-up with your doctor or doctor/clinic provided. Return if symptoms worsen as indicated by your discharge instructions. Prescriptions: HYDROcodone/APAP 5-325 [[place] 5-325 mg TAB] 1 each PO Q6HR PRN #12 tablet PRN Reason: Pain Referrals: ERIKA MENDOZA MD [Staff Physician] - 3-5 Days Time of Disposition: 11:04
--- NOTE | 2021-02-21 08:43 | XRay Report ---
Right tibia and fibula INDICATION: Fracture repair with pain FINDINGS: There is intramedullary leanne within the tibia. The distal aspect of the right appears within the posterior aspect of the tibia with continued displacement of the tibial shaft approximately 1.1 cm. Proximal fibula fracture is also identified in the metadiaphyseal region on AP view comminuted fr acture the distal tibia and fibula are noted. Signer Name: Travis Rojas MD Signed: 02/21/2021 8:38 AM Workstation Name: [id number]
== END 2021-02-21 11:32 | disposition home or self-care (01) ==
LOC: ED 06:04
DX: G89.18 Other acute postprocedural pain (principal); Z79.899 Other long term (current) drug therapy
CPT/HCPCS: 99283

== ENCOUNTER 2021-03-25 13:00 | Outpatient (CLI) | payer OTHER ==
--- NOTE | 2021-03-25 14:59 | XRay Report ---
Right foreleg 4 views INDICATION: Right foreleg pain. IMPRESSION: There is an acute appearing periprosthetic fracture involving the distal tibia as well as the distal fibula and the proximal fibula. Overall I do not see significant change from 02/21/2021. Signer Name: Sudarshan Smith MD Signed: 03/25/2021 2:55 PM Workstation Name: [id number]
== END 2021-03-25 13:01 | disposition home or self-care (01) ==
LOC: XRAY 13:00
PROVIDERS: ATTEND Orthopaedic Surgery
DX: S82.90XA Unspecified fracture of unspecified lower leg, initial encounter for closed fracture (principal); X58.XXXA Exposure to other specified factors, initial encounter; Y93.89 Activity, other specified; Y92.89 Other specified places as the place of occurrence of the external cause; Y99.8 Other external cause status